=== PATIENT | female | born 1965 | race Two or more races ===

== ENCOUNTER 2020-03-13 07:12 | Day surgery (SDC) | payer OTHER ==
[~2020-03-13 07:12] MED LIST: ALKA-SELTZER E1 EACH PO; MULTI-BETIC TA1 EACH PO; NON ADHEREN1 BANDAGE TP; NORVASC10 MG PO; TOPROL XL100 M1 PO; TYLENOL325 MG PO; ZESTRIL5 MG PO
== END 2020-03-13 15:40 | disposition home or self-care (01) ==
LOC: CIR.AMB 07:12 → ADM 08:15 → CIR.AMB 08:15
PROVIDERS: ATTEND Orthopaedic Surgery Hand Surgery
DX: M67.432 Ganglion, left wrist (principal)